=== PATIENT | female | born 1955 | race Caucasian/White ===

== ENCOUNTER 2016-07-12 00:45 | Emergency (ER) | payer OTHER ==
[~2016-07-12] VITALS: Ht 175.3 cm; Wt 59.0 kg
[~2016-07-12 00:45] MED LIST: BACT800T5 PO; CLIN150 PO; HYDR10SO PO
[2016-07-12 00:52] VITALS: BP 190/95; PULSE 90; RESP 15; TEMP 98.1; O2SAT 98
[2016-07-12] MEDS ORDERED: OXYC-395 PO (01:30)
--- NOTE | 2016-07-12 01:41 | PD ---
HPI Chief Complaint: Psychiatric Symptoms Time Seen by Provider: 01:39 Travel History International Travel<30 days: Yes Contact w/Intl Traveler<30days: [place] Traveled to: [facility] Traveled to known affect area: No History of Present Illness HPI Patient comes emergency Department as requested for psychiatric evaluation. Patient states that she is on vacation the [place] with her family was drinking more than she should and said things that she does not recall. Patient denies any suicidal or homicidal ideations at this time. Patient denies any medical concerns. Denies any chest pain, shortness of breath, nausea, vomiting, fevers , or headaches. Patient's son is at bedside states that his mother is a reformed alcohol, who relapsed over the past month and while on vacation was making suicidal statements to family members and tried to jump off a plane ramp while in [place] causing the family to have to drive back to [facility]. PFSH Past Medical History Arthritis: No Anxiety: Yes Depression: No Cancer: No Cardiovascular Problems: No Cerebrovascular Accident: No Diminished Hearing: No Endocrine: No Gastrointestinal Disorders: Yes (pancreatitis 2013) GERD: Yes Genitourinary: No Hiatal Hernia: No Immune Disorder: No Neurologic: Yes Psychiatric: Yes (ETOH/opiate dependence) Reproductive: No Respiratory: No Migraines: No Seizures: No Ulcer: No Tetanus Vaccination: Unknown Influenza Vaccination: No ?: Not Menopausal: Yes : 2 Para: 2 Past Surgical History Abdominal Surgery: No Cardiac Surgery: No Ear Surgery: No Endocrine Surgery: No Eye Surgery: No Genitourinary Surgery: No Gynecologic Surgery: No Oral Surgery: No Thoracic Surgery: No Social History Alcohol Use: Yes (6 DRINKS DAILY) Tobacco Use: Yes (1 PPD) Substance Use: Yes Allergies-Medications (Allergen,Severity, Reaction): Coded Allergies: No Known Allergies (Unverified , 07/12/16) Reported Meds & Prescriptions Reported Meds & Active Scripts Active Bactrim DS (Sulfamethoxazole-Trimethoprim) 800-160 Mg Tab 1 Tab PO BID Reported Oxycodone (Oxycodone HCl) 10 Mg Tab 10 Mg PO Q6H PRN Review of Systems Except as stated in HPI: all other systems reviewed are Neg Physical Exam Narrative GENERAL: Well-developed, well nourished, in no acute distress, and non-ill appearing. SKIN: Warm and dry. HEAD: Atraumatic. Normocephalic. EYES: Pupils equal and round. EOMI. No scleral icterus. No injection or drainage. ENT: No nasal bleeding or discharge. Mucous membranes pink and moist. NECK: Trachea midline. Supple. No nuclear rigidity. CARDIOVASCULAR: Regular rate and rhythm. No murmur appreciated. RESPIRATORY: No accessory muscle use. No respiratory distress. Clear to auscultation. Breath sounds equal bilaterally. MUSCULOSKELETAL: No obvious deformities. No clubbing. No cyanosis. No edema. Full range of motion. NEUROLOGICAL: Awake and alert. No obvious cranial nerve deficits. Motor grossly within normal limits. Normal speech. PSYCHIATRIC: Appropriate mood and affect; insight and judgment normal. Data Data Last Documented VS Vital Signs Date Time Temp Pulse Resp B/P Pulse Ox O2 Delivery O2 Flow Rate FiO2 07/12/16 00:52 98.1 90 15 190/95 98 Room Air Orders Complete Blood Count With Diff (07/12/16 01:09) Comprehensive Metabolic Panel (07/12/16 01:09) Drug Screen, Random Urine (07/12/16 01:09) Alcohol (Ethanol) (07/12/16 01:09) Salicylates (Aspirin) (07/12/16 01:09) Tylenol (Acetaminophen) (07/12/16 01:09) Psych Screen (07/12/16 01:09) Urinalysis - C+S If Indicated (07/12/16 01:10) Urine Culture (07/12/16 01:50) Ceftriaxone Inj (Rocephin Inj) (07/12/16 03:00) Potassium Chloride (Kcl) (07/12/16 03:00) Ibuprofen (Motrin) (07/12/16 03:00) Labs Laboratory Tests Test 07/12/16 01:50 White Blood Count 4.9 TH/MM3 Red Blood Count 3.96 MIL/MM3 Hemoglobin 13.4 GM/DL Hematocrit 37.5 % Mean Corpuscular Volume 94.7 FL Mean Corpuscular Hemoglobin 33.8 PG Mean Corpuscular Hemoglobin 35.7 % Concent Red Cell Distribution Width 15.7 % Platelet Count 192 TH/MM3 Mean Platelet Volume 7.6 FL Neutrophils (%) (Auto) 65.1 % Lymphocytes (%) (Auto) 25.7 % Monocytes (%) (Auto) 7.5 % Eosinophils (%) (Auto) 0.8 % Basophils (%) (Auto) 0.9 % Neutrophils # (Auto) 3.2 TH/MM3 Lymphocytes # (Auto) 1.3 TH/MM3 Monocytes # (Auto) 0.4 TH/MM3 Eosinophils # (Auto) 0.0 TH/MM3 Basophils # (Auto) 0.0 TH/MM3 CBC Comment DIFF FINAL Differential Comment Urine Color YELLOW Urine Turbidity HAZY Urine pH 5.5 Urine Specific [place] 1.013 Urine Protein 30 mg/dL Urine Glucose (UA) NEG mg/dL Urine Ketones NEG mg/dL Urine Occult Blood MOD Urine Nitrite NEG Urine Bilirubin NEG Urine Urobilinogen LESS THAN 2.0 MG/DL Urine Leukocyte Esterase LARGE Urine RBC 22 /hpf Urine WBC 89 /hpf Urine WBC Clumps MOD Urine Bacteria MANY /hpf Urine Mucus MANY /lpf Microscopic Urinalysis Comment CULTURE INDICATED Sodium Level 143 MEQ/L Potassium Level 3.2 MEQ/L Chloride Level 107 MEQ/L Carbon Dioxide Level 26.3 MEQ/L Anion Gap 10 MEQ/L Blood Urea Nitrogen 9 MG/DL Creatinine 0.63 MG/DL Estimat Glomerular Filtration 96 ML/MIN Rate Random Glucose 99 MG/DL Calcium Level 8.5 MG/DL Total Bilirubin 0.4 MG/DL Aspartate Amino Transf 130 U/L (AST/SGOT) Alanine Aminotransferase 64 U/L (ALT/SGPT) Alkaline Phosphatase 153 U/L Total Protein 7.3 GM/DL Albumin 3.9 GM/DL Salicylates Level 5.1 MG/DL Urine Opiates Screen NEG Acetaminophen Level LESS THAN 2.0 MCG/ML Urine Barbiturates Screen NEG Urine Amphetamines Screen NEG Urine Benzodiazepines Screen NEG Urine Cocaine Screen NEG Urine Cannabinoids Screen NEG Ethyl Alcohol Level 20 MG/DL [facility] Medical Decision Making Medical Screen Exam Complete: Yes Emergency Medical Condition: Yes Differential Diagnosis Homicidal, suicidal, alcohol intoxication, alcohol psychosis, electrolyte abnormality, dehydration, other Narrative Course Patient was seen and examined. Labs were obtained and reviewed. Patient was started on antibiotics for UTI and potassium was replaced. Patient medically cleared for further treatment and evaluation by psych. Final disposition per psych. Diagnosis Primary Impression: UTI (urinary tract infection) Qualified Code: N39.0 - Urinary tract infection without hematuria, site unspecified Additional Impression: Hypokalemia Additional Instructions: Follow-up with your primary care physician this week for reevaluation of your UTI and slightly low potassium. Take all medication as prescribed. Return to the emergency department if symptoms get worse. Scripts Sulfamethoxazole-Trimethoprim (Bactrim DS)800-160 Mg Tab1 Tab PO BID #14 TAB Ref 0 Prov:Cortes Huizar MD 07/12/16 Condition: Stable Joe Rogers Jul 12, 2016 01:41
[2016-07-12 02:35] LABS: AUTOMATED NEUTROPHIL # 3.2 TH/MM3 (1.8-7.7); BASOPHIL % 0.9 % (0.0-2.0); EOSINOPHIL % 0.8 % (0.0-4.0); HEMATOCRIT 37.5 % (35.0-46.0); HEMO FLAGS DIFF FINAL; LYMPH % 25.7 % (9.0-44.0); LYMPHOCYTE # 1.3 TH/MM3 (1.0-4.8); MEAN CELL VOLUME 94.7 FL (80.0-100.0); MEAN CORPUSCULAR HEMOGLOBIN 33.8 PG (27.0-34.0); MEAN CORPUSCULAR HGB CONC 35.7 % (32.0-36.0); MONO % 7.5 % (0.0-8.0); NEUT % 65.1 % (16.0-70.0); PLATELET COUNT 192 TH/MM3 (150-450); RED BLOOD COUNT 3.96 MIL/MM3 (4.00-5.30); RED CELL DISTRIBUTION WIDTH 15.7 % (11.6-17.2); WHITE BLOOD COUNT 4.9 TH/MM3 (4.0-11.0)
[2016-07-12 02:36] LABS: BACTERIA, URINE MANY /hpf; BLOOD, URINE MOD (NEG); COMMENT (UR) CULTURE INDICATED; CULTURE IF INDICATED CULTURE INDICATED; GLUCOSE,URINE NEG (NEG); KETONE, URINE NEG (NEG); MUCUS URINE MANY /lpf (OCC); NITRITE,URINE NEG (NEG); PH, URINE 5.5 (5.0-8.5); URINE COLOR YELLOW (YELLW/STRAW)
[2016-07-12 02:40] LABS: AMPHETAMINE, URINE NEG (NEG); BARBITURATES, URINE NEG (NEG); COCAINE, URINE NEG (NEG)
[2016-07-12 02:48] LABS: ANION GAP 10 MEQ/L (5-15); AST (GOT) 130 U/L (15-37); BICARBONATE 26.3 MEQ/L (21.0-32.0); BLOOD UREA NITROGEN 9 MG/DL (7-18); CHLORIDE 107 MEQ/L (98-107); GLOMERULAR FILTRATION RATE 96 ML/MIN (>89); POTASSIUM 3.2 MEQ/L (3.5-5.1); SODIUM (NA) 143 MEQ/L (136-145)
[2016-07-12 02:52] LABS: ALKALINE PHOSPHATASE 153 U/L (45-117); ALT (GPT) 64 U/L (10-53); TOTAL BILIRUBIN ADULT 0.4 MG/DL (0.2-1.0)
[2016-07-12] MEDS ORDERED: BACT800T5 PO (02:52)
[2016-07-12 02:53] LABS: ACETAMINOPHEN LESS THAN 2.0 MCG/ML (10.0-30.0)
[2016-07-12] MEDS ORDERED: POTASSIUM CHLORIDE 20 MEQ CONTROLLED RELEASE TAB PO ONE (03:00)
[2016-07-12] MEDS ORDERED: cefTRIAXone INJ 1,000 MG in SODIUM CHLORIDE 0.9% INJ 100 ML IV ONE (03:00)
[2016-07-12] MEDS ORDERED: IBUPROFEN 800 MG TAB PO ONE ×2 (03:00→10:00)
[2016-07-12] MEDS ORDERED: LORazepam 1 MG TAB PO ONE (05:15)
[2016-07-12 07:23] VITALS: BP 193/86; PULSE 95; RESP 20; O2SAT 98
[2016-07-12] MEDS ORDERED: traMADol HCL 50 MG TAB PO ONE (08:00)
[2016-07-12 11:47] VITALS: BP 186/89; PULSE 82; RESP 20; O2SAT 98
[2016-07-12 12:53] VITALS: BP 175/81; PULSE 92; RESP 18; TEMP 98.5; O2SAT 98
== END 2016-07-12 17:25 | disposition home or self-care (01) ==
LOC: NEPA 00:45 → NEPJ 17:25
DX: N39.0 Urinary tract infection, site not specified (principal); E87.6 Hypokalemia; F17.210 Nicotine dependence, cigarettes, uncomplicated; F10.20 Alcohol dependence, uncomplicated
CPT/HCPCS: 80053; 80307; 81001; 85025; 87086; 96374; 99284; G0480; J0696; 80320; 80329; G0481